=== PATIENT | female | born 1970 | race Caucasian/White ===

== ENCOUNTER 2021-07-21 15:58 | Outpatient (REF) | payer OTHER, SELFPAY ==
[2021-07-23 15:47] LABS: COVID-19 RT-PCR UVMMC Result Negative (Negative)
== END 2021-07-21 15:59 | disposition home or self-care (01) ==
LOC: LBN 15:58
PROVIDERS: PCP Family Medicine; Visit Provider Nurse Practitioner Family
DX: Z20.822 Contact with and (suspected) exposure to COVID-19 (principal); J06.9 Acute upper respiratory infection, unspecified
CPT/HCPCS: U0003

== ENCOUNTER 2021-07-23 13:13 | Emergency (ER) | payer OTHER, SELFPAY ==
[2021-07-23] VITALS (36 sets, daily range): BP systolic 117–177; BP diastolic 63–158; PULSE 71–189; RESP 23–37; TEMP 31–36.4; O2SAT 84–96
--- NOTE | 2021-07-23 13:06 | DI.CT_ITS ---
Exam(s) CT BRAIN NECK CTA EXAM: CT BRAIN NECK CTA CLINICAL HISTORY: stroke. TECHNIQUE: Imaging Protocol: Axial CT angiography was performed with multi-slice acquisition and mu lti-planar and/or 3D reconstructions. CONTRAST MATERIAL: Intravenous: Omnipaque 350 Contrast volume:85 cc COMPARISON: No prior brain imaging studies FINDINGS: CTA Neck W: Lower most images of this CTA study reveal ground-glass infiltrates in both lungs. Recommend Covid te sting Aortic arch anatomy: The aortic arch anatomy is conventional. Anterior circulation: Both common carotid arteries ascend with normal luminal diameters. No significant atherosclerotic dis ease at the carotid bifurcations. Left internal carotid artery is patent in the neck. There right internal carotid artery is occluded at C2 level. No flow is seen in this vessel in the sk ull base nor within the right cavernous sinus. No flow in the supraclinoid aspect of the right ICA. T he ipsilateral A1 segment is reconstituted, most probably by retrograde flow through the anterior com municating artery. There is an 8 millimeter filling defect in the middle cerebral artery M1 segment. Some flow is seen distal to this in the right middle cerebral artery. The left internal carotid artery is patent in the skull base and cavernous sinus and supraclinoid asp ect. Left middle cerebral artery is patent out to the sylvian fissure branches. Both A1 segments are patent. Both anterior cerebral arteries are patent. There is no aneurysm at the level of the anterior communicating artery. Posterior circulation: Both vertebral arteries arise in conventional fashion off of the subclavian arteries. No significant stenosis at their origins nor in the subclavian arteries proximal to the vertebral artery takeoff poi nts. In the foramen transverse area in the left vertebral artery is dominant. There are no intralumin al thrombus within the vertebral arteries nor evidence of dissection. Both vertebral arteries contrib wrangell to the formation of the basilar artery at the skull base. Basilar artery is patent. Distally the basilar artery gives off patent bilateral superior cerebellar arteries. It terminates as a patent rig ht posterior cerebral artery. Also gives off left posterior cerebral artery. The left posterior cereb ral artery also acquires flow from posterior communicating artery on the left side of the [place]. There is no evidence of aneurysm of the tip of the basilar artery. CTA Brain W: Anterior circulation: As above Posterior circulation: As above CT BRAIN: No evidence of intracranial hemorrhage, mass effect, or shift of midline structures. No extra-axial f luid collections. Ventricles are not enlarged or shifted. No ring enhancing lesions in the brain. No abnormal meningeal enhancement. There is poor collateral flow in the territory of the right middle ce rebral artery No evidence of venous dural sinus thrombosis. IMPRESSION: 1. 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 No flow demonstrated in the ipsilateral supraclinoid aspect of the right ICA. Flow in the right midd le cerebral artery is most probably from retrograde flow in the right A1 segment through the anterior communicating artery. 2. In addition, there is an 8 millimeter filling defect in the right middle cerebral artery M1 segmen t consistent with intraluminal thrombus. There is some flow within the right middle cerebral artery d istal to the intraluminal thrombus. 3. The left internal carotid artery is patent. 4. There is no significant atherosclerotic disease at the carotid bifurcations. This implies that t he above finding are probably cardioembolic and correlation any history of atrial fibrillation is rec ommended. 5. Vertebral arteries are patent, left being dominant. Posterior circulation within the intracranial compartment is patent. 6. No evidence of intracranial hemorrhage. Findings called by myself to the emergency room physician. RADIATION DOSE DELIVERED: 1,359.29mGy.cm Total DLP DATA REPOSITORY: All CT scans at this facility are submitted to the National Radiology Data Registry (NRDR) Dose Index Registry (DIR) with the [employer] (ACR). RADIATION OPTIMIZATION: All CT scans at this facility use at least one of these dose optimization te chniques: automated exposure control; mA and/or kV adjustment per patient size (includes targeted exa ms where dose is matched to clinical indication); or iterative reconstruction.
--- NOTE | 2021-07-23 13:20 | W.ED.GENAD ---
Discharge Plan Disposition Patient Disposition: [facility] Condition: Critical Discharge Details Clinical Impression: Acute cerebrovascular accident (CVA), Atrial fibrillation with RVR Primary Care Provider: Ella Hough ED Provider: Miguel Bermudez Home Meds and New Rx's Prescriptions: No Action ibuprofen 600 MG tablet 600 mg PO Q6H Qty: 40 RF: 1 hydrocodone-acetaminophen 1 TAB tablet 1 tab PO Q6H Qty: 9 RF: 0 Medical Decision Making 50 yo female with no significant pmhx comes in with ems with weakness on the left side, n/v and slurred speech. She was at work in normal state of health until aroud 1pm when she started to have vomit, left sided weakness and slurred speech so coworkers called ems. SHe arrives tachycardic in what appears to be svt on the monitor on arrival. She is caox4 with very slurred speech but if a question is 1-2 words answers she can answer to the point I can understand her. She knows her name, where she is and year. She has drift immediately hits the bed in the left arm and leg. Given her symptoms and concern for cva labs and ct ordered, will perform full NIH exam when she returns. Nursing placed NG tube due to her intermittent vomit with success, she is awake and do not feel intubation indicated at this time. She is noted to be in afib with rates in the 150's-180's. cta per Dr. Fuchs shows occluded right carotid artery and 8mm thrombus in the right mca. Her NIH is 14 on my exam (1 for loc, 2 for horizontal extraocular movements, 2 for partial paralysis lower face, 2 for left arm some effort against gravit, 2 for left lleg some effort against gravity, 1 for sensation, 2 for language/aphasia, 2 for dysarthria), HR after receiving IV dilt is 130, and drip ordered. Will discuss with [facility] [place]. Discussed with pt's daughter and mother and they are unsure if they want tpa administered, will discuss with them after they have time to discuss further family now agreeable to tpa so this is ordered. Pt on dilt drip with rates in the 120's, still awakens to voice, on HFNC to maintain oxygenation, it is 95% currently, do not feel she requires intubation at this time. Discussed with neurologist Dr. Gray at [facility] [place] and agrees with tpa and is discussing now with their ED for ED to ED transfer for possible intervention pt accepted to [facility] [place], going by [facility], later [facility]. Patient with rates in the 120's and oxygen saturations in the mid 90's on hfnc. When asked how she is doing she opens her eyes and will use her right hand and give a thumbs up. [facility] Differential Diagnosis Differential Diagnosis: hemorrhagic vs ischemic cva Medical Records Medical records reviewed: Yes I reviewed the patient's medical records. Imaging Data Radiologic Study: Attestation: I personally reviewed and interpreted this imaging study as follows: Imaging: X-Ray My impression: findings suspicious for aspiration pneumonitis Radiologist's impression: Bilateral patchy infiltrates. Probable right pleural effusion. NG tube is in place. Its distal tip is beyond the field of view of this study but it is probably in the stomach Radiologic Study #2: Attestation: I personally reviewed and interpreted this imaging study as follows: Imaging: CT Scan Radiologist's impression: occluded right internal carotid and right mca Lab Data Lab results reviewed: Yes I reviewed the patient's lab results. ECG Data Attestation: I personally reviewed and interpreted this ECG (s) as follows: Prior ECG tracings: not available for review Interpretation: afib rates in the 180's, qtc 467, no acute st t wave ischemic findings HPI General Mode of arrival: EMS. Date/Time Provider Initiated Documentation: 07/23/21 13:17. Information obtained by: patient and EMS. History of Present Illness 50 year old F presents to the emergency department with the chief complaint of left sided weakness, described as moderate and severe, and it has been constant. No relieving factors improve symptom(s), No exacerbating factors reported . Patient did receive the following treatments prior to arrival, none Related Data Home Medications Medication Instructions Recorded Confirmed hydrocodone-acetaminophen 1 tab PO Q6H #9 tab 04/15/18 ibuprofen 600 mg PO Q6H #40 tab 04/15/18 Previous Rx's Medication Instructions Recorded hydrocodone-acetaminophen 1 tab PO Q6H #9 tab 04/15/18 ibuprofen 600 mg PO Q6H #40 tab 04/15/18 Allergies Allergy/AdvReac Type Severity Reaction Status Date / Time No Known Allergies Allergy Unverified 07/23/21 13:14 General Stated Complaint: CVA/TIA SARA: 1 Review of Systems All systems reviewed & are unremarkable except as noted in HPI and below Constitutional Constitutional: Denies chills and Denies fever(s) Cardiovascular Cardiovascular: Denies chest pain and Denies dyspnea Respiratory Respiratory: Denies cough and Denies dyspnea Gastrointestinal Gastrointestinal: Denies abdominal pain Musculoskeletal Musculoskeletal: Denies joint swelling PFSH Medical History (Updated 07/23/21 @ 14:57 by Miguel Bermudez MD) Low back pain Obesity Surgical History (Updated 08/10/18 @ 14:34 by [employer] [place]) Appendectomy Cholecystectomy Social History Smoking/Tobacco Use Status: Never Smoking risk assessment performed?: Yes Alcohol Intake: never Drug use: Never Do you feel safe at home: Yes Do you feel safe in your relationship?: Yes Exam Const General: anxious Orientation: alert HENMT Head: normal to inspection Ears: external ears normal General nose exam: external nose normal Mouth: moist mucous membranes Eyes General: appearance normal, both eyes and all related structures Neck Neck: normal visual inspection Resp Effort & Inspection: normal respiratory effort Cardio Rate: tachycardic Skin General skin exam: no rashes or lesions noted Neuro General: patient alert Extrem General: normal to inspection Course Vital Signs Vital signs: Vital Signs Pulse 170 H 07/23/21 13:00 Respiratory Rate 30 H 07/23/21 13:00 Pulse Oximetry 84 L 07/23/21 13:00 Temperature Source Skin 07/23/21 13:00 Pulse 170 H 07/23/21 13:00 Respiratory Rate 30 H 07/23/21 13:00 Blood Pressure Position Supine 07/23/21 13:00 Pulse Oximetry 84 L 07/23/21 13:00 Oxygen Delivery Method Room Air 07/23/21 13:00 Oxygen Flow Rate 0 07/23/21 13:00 Pain Level 0 07/23/21 13:00 Comment 07/23/21 13:00 Critical Care Time Critical Care Time Critical Care Time: Yes Total Critical Care Time: 60 (minutes) Attestation: time spent on frequent reassesments, lab review, hemodynamic monitoring in patient with cva and afib with rvr requiring dawit blockers and potential to deteriorate at any time
[2021-07-23 13:25] LABS: HCT 44.1 % (36.0-46.0); HGB 13.8 g/dL (11.2-15.7); MCH 29.4 pg (27.0-33.0); MCHC 31.3 % (32.0-36.0); MCV 93.8 fL (80-95); MPV 10.6 fL (8.0-11.0); Nucleated RBC 0 %; Platelet Count 357 10^3/uL (130-400); RDW 14.1 % (11.7-14.6); RDW-SD 48.6 fL; WBC 14.08 10^3/uL (4.4-10.8)
[2021-07-23 13:39] LABS: ALT 49 U/L (14-59); AST 34 U/L (15-37); Absolute Basophil Count 0.28 10^3/uL (0.0-0.2); Absolute Eosinophil Count 0.14 10^3/uL (0.0-0.7); Absolute Lymphocyte Count 5.63 10^3/uL (1.2-3.4); Absolute Monocyte Count 0.42 10^3/uL (0.1-0.8); Albumin 3.5 g/dL (3.4-5.0); Alkaline Phosphatase 85 U/L (46-116); Anion Gap 9.2 mmol/L (3-11); Atypical Lymphocytes % 3; BUN 19 mg/dL (7-18); Bands % 1; Bilirubin, Total 0.9 mg/dL (0.2-1.0); CO2 25.8 mmol/L (21.0-32.0); Calcium 8.6 mg/dL (8.5-10.1); Chloride 105 mmol/L (98-107); Diff Comment Manual Differential; Estimated GFR 58.93 (mL/min/1.73m2); Glucose 171 mg/dL (74-106); Lipase 93 U/L (73-393); RBC Morphology Normal; Sodium 140 mmol/L (136-145); Total Protein 6.8 g/dL (6.4-8.2)
[2021-07-23 13:40] LABS: INR 1.1 (0.9-1.1); PTT Activated 21.7 sec (21.0-27.5); Prothrombin Time 11.2 sec (9.3-11.0)
[2021-07-23 13:45] LABS: ETHANOL BLOOD < 3.0 mg/dL (<3)
--- NOTE | 2021-07-23 13:45 | RT.EKG_ITS ---
APPROVED REPORT Exam: Resting ECG Reason for Exam: cva Patient Location: E HR:166 bpm ECG Measurements Heart Rate 166 AXIS ID [id number] P [id number] QRSd 94 QRS -18 QT 276 T 98 QTc 467 Conclusion Age and gender not entered, assume 51 yo male for purpose of ECG interpretation Atrial fibrillation with rapid V-rate...A-rate 417 Repolarization abnormality, prob rate related...ST dep, T neg, tachycardia
[2021-07-23] MEDS: Normal Saline - Diluent 50 ML VIAL IV (13:46)
[2021-07-23] MEDS: Omnipaque 350 MG/ML 100 ML BTL 85 ML IJ (13:46)
[2021-07-23 14:02] LABS: Magnesium 2.1 mg/dL (1.8-2.4); TSH (W/Ref FT4) 3.61 uIU/mL (0.36-3.74)
[2021-07-23] MEDS: dilTIAZem 25 MG/5 ML VIAL 15 MG IVP (14:11)
--- NOTE | 2021-07-23 14:12 | DI.RAD_ITS ---
Exam(s) XR PORTABLE CHEST AP POST LINE EXAM: XR PORTABLE CHEST AP POST LINE CLINICAL HISTORY: tube placement. TECHNIQUE: 2D digital imaging was performed. COMPARISON: No exams were available for comparison FINDINGS: There is cardiomegaly.. The mediastinum is not widened. NG tube is in stomach Infiltrates noted bilaterally. Probable small right pleural effusion. IMPRESSION: Bilateral patchy infiltrates. Probable right pleural effusion. NG tube is in place. Its distal tip is beyond the field of view of this study but it is probably in the stomach DATA REPOSITORY: RADIATION DOSE DELIVERED: All CT scans at this facility use at least one of these dose optimization techniques: automated exposure control; mA and/or kV adjustment per patient size (includes targeted e xams where dose is matched to clinical indication); or iterative reconstruction.
[2021-07-23 14:15] LABS: Source Nasal/Nares
[2021-07-23 14:22] LABS: Bilirubin Negative (Negative); Blood Moderate (Negative); Glucose Negative (Negative); Ketones Negative (Negative); Leukocyte Esterase Negative (Negative); Nitrite Negative (Negative); Urobilinogen 0.2 EU/dL (Up TO 0.2)
[2021-07-23 14:23] LABS: Clarity Clear (Clear)
[2021-07-23] MEDS: dilTIAZem 125 MG in Normal Saline 100 ML IV (14:23)
[2021-07-23 14:30] LABS: Bacteria Few HPF (Negative); Crystals Negative HPF (Negative); Epithelial Cells Few HPF (Negative); Mucus Trace (Negative); Other Cells Few Renal (Negative); WBC 0-2 HPF (0-5)
[2021-07-23 14:31] LABS: C & S Indicated? No
[2021-07-23 14:32] LABS: *AMPHETAMINES SCREEN URINE Negative (Negative); *BARBITURATES SCREEN URINE Negative (Negative); *BENZODIAZEPINES SCREEN URINE Negative (Negative); Cannabinoids THC Negative (Negative); Cocaine Screen,Urine Negative (Negative); METHADONE URINE SCREEN Negative (Negative); OPIATES URINE SCREEN Negative (Negative)
--- NOTE | 2021-07-23 14:38 | RESPIRATORY ---
1330 RT responded to Stroke Code on pt. Pt was altered w/left-sided weakness. Pt continued to vomit requiring oral suction. Pt was placed on 15L O2 via NC with an SpO2 of 94% and transported to CT. Pt again vomited when laid flat for CT requiring oral suctioning. Pt maintained SpO2 above 88% throughout CT. Upon return to ED, pt required additional O2, so NRB w/15L O2 was placed over NC. 1415 Pt continues to require frequent oral suctioning with coughing. HFNC initiated at 50L 90% FiO2 with SpO2 92-93%, HR 147, RR 26 Will continue to monitor pt.
--- NOTE | 2021-07-23 14:47 | NUR.NOTE ---
TPA started at 1447. Pt remains with HR 124 A-fib, SPO2 96 on 50L, RR 31. BP 132/86. Pt is lethargic with slurred speech. Monitoring pt 1:1 Nursing Note:
[2021-07-23 14:48] LABS: Tricyclic Antidepressants Negative (Negative)
--- NOTE | 2021-07-23 14:52 | NUR.NOTE ---
Pt alert and answering questions verbally and with thumbs up. Now to be noted lethargic and responding to voice with head nods. Pt tolerating High Flow NC well at this time.Nursing Note:
[2021-07-23 15:19] LABS: COVID-19 PCR Negative (Negative)
== END 2021-07-23 15:56 | disposition short-term general hospital (02) ==
PROVIDERS: Emergency Provider Emergency Medicine; PCP Family Medicine
DX: I63.231 Cerebral infarction due to unspecified occlusion or stenosis of right carotid arteries (principal); G81.94 Hemiplegia, unspecified affecting left nondominant side; I66.9 Occlusion and stenosis of unspecified cerebral artery; R29.714 NIHSS score 14; R47.81 Slurred speech; I48.91 Unspecified atrial fibrillation; R11.2 Nausea with vomiting, unspecified; Z20.822 Contact with and (suspected) exposure to COVID-19; Z03.818 Encounter for observation for suspected exposure to other biological agents ruled out
CPT/HCPCS: 36415; 51702; 70496; 70498; 71045; 80053; 80307; 83690; 87635; 93005; 96365; 96366; 96368; 96375; 99291; 80320; 81003; 81015; 83735; 84443; 85025; 85610; 85730; 93010; J2997; J3490

== ENCOUNTER 2021-10-30 19:06 | Outpatient (REF) | payer OTHER, SELFPAY ==
[2021-10-31 15:18] LABS: COVID-19 RT-PCR UVMMC Result Positive (Negative)
== END 2021-10-30 19:07 | disposition home or self-care (01) ==
LOC: NCHCN 19:06
PROVIDERS: PCP Family Medicine; Visit Provider Family Medicine
DX: Z20.822 Contact with and (suspected) exposure to COVID-19 (principal)
CPT/HCPCS: U0003

== ENCOUNTER 2021-12-05 18:36 | Outpatient (REF) | payer OTHER, SELFPAY ==
[2021-12-07 10:30] LABS: COVID-19 RT-PCR UVMMC Result Negative (Negative)
== END 2021-12-05 18:37 | disposition home or self-care (01) ==
LOC: NCHCN 18:36
PROVIDERS: PCP Family Medicine; Visit Provider Family Medicine
DX: Z20.822 Contact with and (suspected) exposure to COVID-19 (principal)
CPT/HCPCS: U0003

== ENCOUNTER 2022-02-25 00:49 | Outpatient (CLI) | payer OTHER, SELFPAY ==
--- NOTE | 2022-02-25 14:00 | DI.US_ITS ---
APPROVED REPORT EXAM: Comprehensive 2D, Doppler, and color-flow Echocardiogram Patient Location: Out-Patient Substitute Nurse: Cara Tierney RDCS (AE) Indications: Atrial Fib, Heart failure, Other Information Study Quality: Fair Conclusion Normal left ventricular wall thickness and chamber size. Estimated ejection fraction is 60%. Wall m otion is normal Normal right ventricular size and systolic function Both atria are normal in size There is no structural or hemodynamically significant valvular disease There is a small patent foramen ovale with xdwa-yx-wrsde shunt Normal estimated right ventricular systolic pressure 27 mmHg Wall motion Left Ventricle The left ventricle is normal size. The left ventricular systolic function is normal. The left ventric ular ejection fraction is within the normal range. There is normal left ventricular wall thickness. T here is normal LV segmental wall motion. There is no ventricular septal defect visualized. LVEF is 59 %. Right Ventricle The right ventricle is normal size. The right ventricular systolic function is normal. The RVSP is 27 .3 mmHg. Atria The left atrium size is normal. The right atrium size is normal. Small PFO is noted. left to right in teratrial shunt. Aortic Valve Aortic valve is probably trileaflet. There is normal aortic valve excursion. No hemodynamically signi ficant valvular aortic stenosis. No aortic regurgitation is present. Mitral Valve The mitral valve is normal in structure. No evidence of mitral valve stenosis. Trace mitral regurgita tion. Tricuspid Valve The tricuspid valve is normal in structure. There is no tricuspid valve stenosis. Trace tricuspid reg urgitation. Pulmonic Valve The pulmonary valve is normal in structure. There is no pulmonic valvular stenosis. Trace pulmonic re gurgitation. Great Vessels The aortic root is normal in size. The ascending aorta is normal in size. Aortic arch is normal in ca liber. IVC is normal in size and collapses >50% with inspiration. Pericardium There is no pericardial effusion. 2D Dimensions IVSD d PLAX 1.04 cm F: 0.6-1.0 LV Vol A2C d MOD 111.1 mL LVPW d PLAX 1.03 cm F: 0.6 - 1.0 LV Vol A4C d MOD 147.7 mL LVID d PLAX 5.49 cm F: 3.8 - 5.2 LA vol/ BSA A2C s A-L 31.7 mL/m2 LVDs 3.65 cm F: 2.2 - 3.5 LA vol/ BSA A4C s A-L 31.1 mL/m2 Ao Root d 2.92 cm F: 2.7 - 3.3 LA Vol/ BSA Biplane s A-L 32.5 mL/m2 RA Area A4C 20.40 cm2 LA Area A4C s MOD 22.37 cm2 RA Vol/ BSA A4C s A-L 27.0 mL/m2 LA Area A2C s MOD 21.87 cm2 Ao Asc Diam d 3.25 cm F: 2.3 - 3.1 LV EF A4C MOD 58.5 % LV EF Teichholz 61.6 % LV EF A2C MOD 59.6 % LVEF (Cruz's) 59.01 % F: 54 - 74 LV EF Biplane MOD 59.0 % LV Volume 94.65 mL F: 46 - 106 SV 76.37 mL LV Volume Index 43.81 mL/m2 F: 29 - 61 SV Index 35.34 mL/m2 LV Vol Biplane MOD 129.4 mL FS 33.45 % M-Mode TAPSE 2.90 cm (M/F) >1.7 LV Diastology MV E' medial 0.083 (>0.07 m/s) E/A Ratio 1.1 LV E/e MED 9.90 (<14) MV E Vmax 0.83 (0.4-1.3 m/s) MV E' lateral 0.084 (>0.1 m/s) MV A Vmax 0.75 (0.4-1.3 m/s) LV E/e LAT 9.75 (<14) MV E/A Ratio 1.04 MV E/E' medial 9.93 MV E/E' lateral 9.78 Aortic Valve LVOT Area 3.68 cm2 AoV Area Vmax 2.61 cm2 LVOT Vmax 1.16 m/s AoV Area/ BSA (Vmax) 1.21 cm2/m2 LVOT Mean Kurt. 0.66 m/s SHERRIE Mean Kurt. 2.32 cm2 LVOT Peak Grad 5.4 mmHg SHERRIE Mean Kurt. Index 1.07 cm2/m2 LVOT Mean Grad 2.2 mmHg LVOT VTI 0.281 m LVOT Diam s 2.15 cm AoV Vmax 1.63 m/s Velocity Ratio 0.71 AoV Mean Kurt. 1.05 m/s AoV Peak Grad 10.7 mmHg LVOT SV 103.63 mL AoV Mean Grad 5.1 mmHg AoV VTI 0.319 m AoV Area VTI 3.25 cm2 AoV Area/ BSA (VTI) 1.50 cm/m2 Mitral Valve MV DT 228 (160-240 msec) MV PHT 66 msec MV Area PHT 3.33 cm2 MV VTI 0.463 m MV Area VTI 2.24 (4.0-6.0 cm2) Pulmonary Valve PV Vmax 1.08 (0.5-1.5 m/s) RVOT Peak Gr. 2.61 mmHg PV Peak Grad 4.7 mmHg RVOT Mean Gr. 1.40 mmHg PV Mean Grad 2.4 mmHg RVOT VTI 0.210 m PV VTI 0.264 m RVOT Vmax 0.81 m/s Tricuspid Valve TR Peak Grad 24.2 mmHg TR Vmax 2.46 m/s RA Pressure 3.00 mmHg RVSP (TR) 27.3 mmHg
== END 2022-02-25 01:09 ==
PROVIDERS: PCP Family Medicine
DX: I48.91 Unspecified atrial fibrillation (principal); I50.1 Left ventricular failure, unspecified
CPT/HCPCS: 93306

== ENCOUNTER 2022-04-08 18:30 | Outpatient (REF) | payer OTHER, SELFPAY ==
[2022-04-08 19:57] LABS: HCT 41.1 % (36.0-46.0); HGB 13.4 g/dL (11.2-15.7); MCH 31.6 pg (27.0-33.0); MCHC 32.6 % (32.0-36.0); MCV 97 fL (80-95); MPV 10.8 fL (8.0-11.0); Platelet Count 251 10^3/uL (130-400); RBC 4.24 10^6/uL (3.93-5.22); RDW 13.8 % (11.7-14.6); RDW-SD 49.5 fL; WBC 11.12 10^3/uL (4.4-10.8)
[2022-04-08 20:08] LABS: ALT 21 U/L (14-59); AST 21 U/L (15-37); Alkaline Phosphatase 101 U/L (46-116); BUN 22 mg/dL (7-18); Bilirubin, Total 0.4 mg/dL (0.2-1.0); CREATININE 0.9 mg/dL (0.55-1.02); Calcium 9.1 mg/dL (8.5-10.1); Chloride 108 mmol/L (98-107); Glucose 119 mg/dL (74-106); Potassium 4.1 mmol/L (3.5-5.1); Sodium 143 mmol/L (136-145); Total Protein 7.5 g/dL (6.4-8.2)
[2022-04-08 20:21] LABS: Bilirubin Negative (Negative); Blood Trace-intact (Negative); Clarity Clear (Clear); Glucose Negative (Negative); Ketones Trace mg/dL (Negative); Leukocyte Esterase Negative (Negative); Nitrite Negative (Negative); Specific Gravity >= 1.030 (1.005-1.025); Urobilinogen 0.2 EU/dL (Up TO 0.2)
[2022-04-08 20:39] LABS: Bacteria Negative HPF (Negative); C & S Indicated? No; Casts Negative LPF (Negative); Crystals Mod Calcium Oxalate HPF (Negative); Epithelial Cells Negative HPF (Negative); Mucus Negative (Negative); RBC 0-2 HPF (0-2); WBC 0-2 HPF (0-5)
== END 2022-04-08 18:31 | disposition home or self-care (01) ==
LOC: NCHCN 18:30
PROVIDERS: PCP Family Medicine; Visit Provider Family Medicine
DX: I89.0 Lymphedema, not elsewhere classified (principal); I63.9 Cerebral infarction, unspecified; I50.9 Heart failure, unspecified; E66.9 Obesity, unspecified; R82.998 Other abnormal findings in urine
CPT/HCPCS: 80053; 85027; 81003; 81015

== ENCOUNTER 2022-06-13 10:16 | Emergency (ER) | payer OTHER, SELFPAY ==
[2022-06-13] VITALS (26 sets, daily range): BP systolic 132–163; BP diastolic 80–84; PULSE 57–76; RESP 13–21; TEMP 36.6; O2SAT 92–100
--- NOTE | 2022-06-13 10:15 | RT.EKG_ITS ---
APPROVED REPORT Exam: Resting ECG Reason for Exam: afib Patient Location: E HR:62 bpm ECG Measurements Heart Rate 62 AXIS AZ 156 P 41 QRSd 97 QRS -19 QT 392 T 9 QTc 397 Conclusion Sinus rhythm...normal P axis, V-rate 60- 99 Atrial premature complex...SV complex w/ short R-R interval Left ventricular hypertrophy...multiple voltage criteria. Sinus. PACs. No STEMI. I have reviewed and interpreted ECG and agree with software generated interpretation.
[2022-06-13 11:03] LABS: Abs Immature Grans 0.02 10^3/uL (0.0-0.06); Absolute Basophil Count 0.05 10^3/uL (0.0-0.2); Absolute Eosinophil Count 0.22 10^3/uL (0.0-0.7); Absolute Monocyte Count 0.84 10^3/uL (0.1-0.8); Absolute Neutrophil Count 4.02 10^3/uL (1.2-6.7); Basophils % 0.7; HGB 14.2 g/dL (11.2-15.7); Immature Grans % 0.3; Lymphocytes % 30.9; MCH 30.9 pg (27.0-33.0); MCV 94 fL (80-95); Monocytes % 11.3; Neutrophils % 53.8; Platelet Count 216 10^3/uL (130-400); RDW 13.1 % (11.7-14.6); RDW-SD 45.1 fL; WBC 7.45 10^3/uL (4.4-10.8)
[2022-06-13 11:28] LABS: ALT 21 U/L (14-59); AST 13 U/L (15-37); Albumin 3.8 g/dL (3.4-5.0); Alkaline Phosphatase 93 U/L (46-116); Anion Gap 5.9 mmol/L (3-11); BUN 18 mg/dL (7-18); Bilirubin, Total 0.5 mg/dL (0.2-1.0); CO2 32.1 mmol/L (21.0-32.0); CREATININE 0.8 mg/dL (0.55-1.02); Calcium 9.2 mg/dL (8.5-10.1); Chloride 108 mmol/L (98-107); Glucose 102 mg/dL (74-106); Magnesium 2.1 mg/dL (1.8-2.4); Potassium 3.5 mmol/L (3.5-5.1); Sodium 146 mmol/L (136-145); TSH (W/Ref FT4) 1.59 uIU/mL (0.36-3.74); Total Protein 7.6 g/dL (6.4-8.2); Troponin I < 50 ng/L (<or=60)
--- NOTE | 2022-06-13 13:45 | RT.EKG_ITS ---
APPROVED REPORT Exam: Resting ECG Reason for Exam: palpitations Patient Location: E HR:56 bpm ECG Measurements Heart Rate 56 AXIS IA 172 P 11 QRSd 109 QRS -14 QT 426 T -1 QTc 402 Conclusion Sinus bradycardia...rate< 60 Atrial premature complex...SV complex w/ short R-R interval Left ventricular hypertrophy...multiple voltage criteria Borderline T abnormalities, diffuse leads...T flat/neg. Sinus. PACs. No STEMI. I have reviewed and interpreted ECG and agree with software generated interpretation.
[2022-06-13 14:07] LABS: Troponin I < 50 ng/L (<or=60)
--- NOTE | 2022-06-13 15:10 | ED.GENADUL_ITS ---
Discharge Plan Disposition Patient Disposition: HOME Condition: Good Discharge Details Clinical Impression: Heart palpitations Primary Care Provider: Ella Hough ED Provider: Josue Burgos Home Meds and New Rx's Prescriptions: Continued atorvastatin 40 mg tablet 1 tab PO HS Label Comments: Take 1 tablet by mouth every night as directed metoprolol succinate [Toprol XL] 50 mg tablet extended release 24 hr 1 tab PO DAILY Label Comments: 1 tablet by mouth once a day sennosides-docusate sodium [Stimulant Laxative Plus] 8.6-50 mg tablet 2 tab PO BID Label Comments: TAKE 2 TABLETS BY MOUTH TWICE DAILY lisinopril 10 mg tablet 1 tab PO DAILY Label Comments: Take 1 tablet by mouth once a day as directed furosemide 20 mg tablet 1 tab PO DAILY Label Comments: TAKE 1 TABLET BY MOUTH EVERY DAY albuterol sulfate 90 mcg/actuation HFA aerosol inhaler 2 puff INHALATION PRN PRN Label Comments: INHALE 2 PUFFS BY MOUTH EVERY 4 HOURS NEEDED dofetilide 500 mcg capsule 1 cap PO BID Label Comments: TAKE 1 CAPSULE BY MOUTH TWICE DAILY lactulose 10 gram/15 mL solution 15 ml PO DAILY Label Comments: TAKE 15 ML BY MOUTH TWICE DAILY omeprazole 20 mg tablet,delayed release (DR/EC) 1 tab PO DAILY Label Comments: TAKE 1 TABLET BY MOUTH EVERY DAY DIRECTED Eliquis 5 mg tablet 1 tab PO BID Label Comments: TAKE 1 TABLET BY MOUTH TWICE DAILY DIRECTED ibuprofen 600 MG tablet 600 mg PO Q6H Qty: 40 1RF hydrocodone-acetaminophen 1 TAB tablet 1 tab PO Q6H Qty: 9 0RF Discharge Instructions Instructions: Heart Palpitations (ED) Additional Instructions: At this time we are finding no worrisome findings with your emergency department work-up. If you develop any new or worsening symptoms, have a return of persistent palpitations or rapid heart rate, or further concerns return immediately to the emergency department for reassessment. Otherwise continue to monitor your heart rate as discussed and follow-up with your primary care provider if this occurs again as you may need further medication changes. Referrals: Ella Hough [Primary Care Provider] - (As needed for reassessment) Discharge Data Discharge Date/Time-TO BE ENTERED AT DEPARTURE: 06/13/22 15:20 Medical Decision Making Patient presenting to the emergency department for chief complaint of palpitations. She states this morning while she was getting up out of bed her watch stated that her heart rate was abnormal. Patient states that she was asymptomatic at that time but due to having a history of A. fib checked her blood pressure which was elevated also. Due to this patient was presenting to the emergency department. She does state while walking across the parking lot she did feel some palpitations which now have fully resolved. Patient is currently asymptomatic with no chest pain or other symptoms. Physical exam is unremarkable. Given patient's history we will perform EKG and cardiac work-up to rule out any cardiac event. Reviewed EKG. Please see physician interpretation for full interpretation of EKG the patient is in sinus rhythm, no findings of atrial fibrillation, no findings to suggest STEMI. Reviewed patient's labs which shows a unremarkable CBC, CMP shows a slightly elevated sodium of 146, chloride of 108, carbon dioxide of 32.1. CMP is otherwise nondiagnostic with all of these levels being only slightly elevated. Initial troponin is negative and the patient's TSH was within normal range. Reassessed patient and she continued to state that she was asymptomatic. We will continue with 3-hour troponin and repeat EKG. Repeat EKG continues to show normal sinus rhythm, negative repeat troponin, and patient remains asymptomatic. I have a high suspicion that the event that occurred this morning may have been a error on patient's watch given that she was asymptomatic. Patient did pull up the heart rate record on her phone patient's heart rate never increased above 100. There is some suspicion that this could be more related to anxiety but will have patient continue to monitor heart rate, informed patient to check her pulse manually if her watch informed her of the irregular rhythm and if patient becomes symptomatic at any point that she should return to the emergency department for reevaluation. Otherwise I feel that patient is able to be safely followed up on outpatient basis. After discussion of diagnosis and plan of care patient has no further needs, questions, or concerns and states clear understanding to return to the emergency department for any worsening symptoms. This documentation was generated using [email or web address] system, please disregard any oddities of phrase or misspellings. HPI General Mode of arrival: ambulatory . Date/Time Provider Initiated Documentation: 06/13/22 10:20 . Limitations to Documentation: no limitations . Information obtained by: patient, RN notes reviewed and old records reviewed . History of Present Illness 51 year old F presents to the emergency department with the chief complaint of Palpitations, described as mild, Quality is described as other (Denies pain), Patient started experiencing this day(s) (2) and it has been intermittent and now resolved. No relieving factors improve symptom(s), No exacerbating factors reported . Patient notes no other symptoms.. Patient did receive the following treatments prior to arrival, none Related Data Home Medications Medication Instructions Recorded Confirmed hydrocodone 5 mg-acetaminophen 325 1 tab PO Q6H #9 tabs 04/15/18 mg tablet ibuprofen 600 mg tablet 600 mg PO Q6H #40 tabs 04/15/18 albuterol sulfate 90 mcg/actuation 2 puff inhalation PRN PRN 06/13/22 06/13/22 aerosol inhaler apixaban 5 mg tablet (Eliquis) 1 tab PO BID 06/13/22 06/13/22 atorvastatin 40 mg tablet 1 tab PO HS 06/13/22 06/13/22 dofetilide 500 mcg capsule 1 cap PO BID 06/13/22 06/13/22 furosemide 20 mg tablet 1 tab PO DAILY 06/13/22 06/13/22 lactulose 10 gram/15 mL oral 15 ml PO DAILY 06/13/22 06/13/22 solution lisinopril 10 mg tablet 1 tab PO DAILY 06/13/22 06/13/22 metoprolol succinate 50 mg 1 tab PO DAILY 06/13/22 06/13/22 tablet,extended release 24 hr (Toprol XL) omeprazole 20 mg tablet,delayed 1 tab PO DAILY 06/13/22 06/13/22 release sennosides 8.6 mg-docusate sodium 2 tab PO BID 06/13/22 06/13/22 50 mg tablet (Stimulant Laxative Plus) Previous Rx's Medication Instructions Recorded hydrocodone 5 mg-acetaminophen 325 1 tab PO Q6H #9 tabs 04/15/18 mg tablet ibuprofen 600 mg tablet 600 mg PO Q6H #40 tabs 04/15/18 Allergies Allergy/AdvReac Type Severity Reaction Status Date / Time No Known Allergies Allergy Unverified 07/23/21 13:14 General Stated Complaint: Palpitatns SARA: 3 Review of Systems Constitutional Constitutional: Denies chills, Denies fever(s), Denies headache(s) and Denies malaise ENT Ears, Nose, Mouth, and Throat: Denies vertigo, Denies dizziness and Denies headache(s) Cardiovascular Cardiovascular: Reports as per HPI, Denies chest pain, Denies chest pain with activity, Denies syncope, Denies irregular heart rhythm, Reports palpitations and Denies dyspnea Respiratory Respiratory: Denies cough, Denies hemoptysis and Denies dyspnea Gastrointestinal Gastrointestinal: Denies abdominal pain, Denies nausea and Denies vomiting Neurologic Neurologic: Denies confusion, Denies vertigo, Denies dizziness, Denies syncope and Denies headache(s) Psychiatric Psychiatric: Denies anxiety and Denies confusion Endocrine Endocrine: Denies cold intolerance, Denies heat intolerance and Reports palpitations PFSH All Active Problems (Updated 06/13/22 @ 15:11 by Josue Burgos NP) Acute cerebrovascular accident (CVA) (Acute) Atrial fibrillation with RVR (Acute) Heart palpitations (Acute) Medical History (Updated 06/13/22 @ 15:11 by Josue Burgos NP) Low back pain Obesity Surgical History (Updated 08/10/18 @ 14:34 by Edu[employer]ise [place]) Appendectomy Cholecystectomy Social History Smoking/Tobacco Use Status: Never Smoking risk assessment performed?: Yes Alcohol Intake: never Drug use: Never Do you feel safe at home: Yes Do you feel safe in your relationship?: Yes Exam Const General: cooperative, healthy appearing, comfortable, no acute distress, not diaphoretic and not ill appearing Nutritional Appearance: average body habitus Orientation: alert, awake and oriented x3 Limitations: mental status not altered Neck Neck: normal visual inspection, full ROM, trachea midline, supple and no anterior neck swelling Thyroid: thyroid normal Carotids: normal carotid upstroke and no bruits Chest Chest: normal inspection of the chest Resp Effort & Inspection: normal respiratory effort and able to speak in complete sentences Auscultation: clear to auscultation bilaterally Cardio Jugular venous pressure: no JVD Palpation: normal PMI Rate: regular rate Rhythm: regular rhythm Heart Sounds: S1 normal, S2 normal, no click, no gallops, no murmurs and no rubs Bruits: no abdominal aortic bruits and no carotid bruits Pulses: radial pulses present bilaterally 2+ GI Inspection: normal to inspection Palpation: soft, no aortic enlargement, no pulsatile masses and nontender Auscultation: normal bowel sounds Skin General skin exam: no rashes or lesions noted Neuro General: patient alert, patient awake, patient oriented x3, tone normal and moves all extremities Course Vital Signs Vital signs: Vital Signs Temperature 36.6 C 06/13/22 10:21 Pulse 73 06/13/22 10:21 Respiratory Rate 18 06/13/22 10:21 Blood Pressure 163/84 H 06/13/22 10:21 Pulse Oximetry 99 06/13/22 10:21 Temperature 36.6 C 06/13/22 10:21 Temperature Source Temporal Artery Scan 06/13/22 10:21 Pulse 73 06/13/22 10:21 Pulse 66 06/13/22 11:50 Respiratory Rate 16 06/13/22 11:50 Respiratory Effort Non-Labored 06/13/22 10:29 Blood Pressure 163/84 H 06/13/22 10:21 Blood Pressure Position Sitting 06/13/22 10:21 Pulse Oximetry 96 06/13/22 11:40 Oxygen Delivery Method Room Air 06/13/22 10:21 Oxygen Flow Rate 0 06/13/22 10:21 Pain Level 0 06/13/22 10:21 Lab/Test Results Lab/Test Results: Laboratory Tests Range/Units 06/13/22 06/13/22 06/13/22 10:55 10:55 13:32 WBC (4.4-10.8) 10^3/uL 7.45 RBC (3.93-5.22) 10^6/uL 4.60 Hgb (11.2-15.7) g/dL 14.2 Hct (36.0-46.0) % 43.0 MCV (80-95) fL 94 MCH (27.0-33.0) pg 30.9 MCHC (32.0-36.0) % 33.0 RDW (11.7-14.6) % 13.1 Plt Count (130-400) 10^3/uL 216 MPV (8.0-11.0) fL 10.0 Immature Gran % 0.3 Neutrophils % 53.8 Lymphocytes % 30.9 Monocytes % 11.3 Eosinophils % 3.0 Basophils % 0.7 Nucleated RBC % (0.0-0.3) % 0.0 Absolute Neutrophils (1.2-6.7) 10^3/uL 4.02 Absolute Lymphocytes (1.2-3.4) 10^3/uL 2.30 Absolute Monocytes (0.1-0.8) 10^3/uL 0.84 H Absolute Eosinophils (0.0-0.7) 10^3/uL 0.22 Absolute Basophils (0.0-0.2) 10^3/uL 0.05 Sodium (136-145) mmol/L 146 H Potassium (3.5-5.1) mmol/L 3.5 Chloride (98-107) mmol/L 108 H Carbon Dioxide (21.0-32.0) mmol/L 32.1 H Anion Gap (3-11) mmol/L 5.9 BUN (7-18) mg/dL 18 Creatinine (0.55-1.02) mg/dL 0.8 Estimated GFR/1.73 m2 (mL/min/1.73m2) >= 60.00 Glucose (74-106) mg/dL 102 Calcium (8.5-10.1) mg/dL 9.2 Magnesium (1.8-2.4) mg/dL 2.1 Total Bilirubin (0.2-1.0) mg/dL 0.5 AST (15-37) U/L 13 L ALT (14-59) U/L 21 Alkaline Phosphatase (46-116) U/L 93 Troponin I (<or=60) ng/L < 50 < 50 Total Protein (6.4-8.2) g/dL 7.6 Albumin (3.4-5.0) g/dL 3.8 TSH (0.36-3.74) uIU/mL 1.59
== END 2022-06-13 15:20 | disposition home or self-care (01) ==
PROVIDERS: Emergency Provider Nurse Practitioner Family; PCP Family Medicine
DX: R00.2 Palpitations (principal); I48.91 Unspecified atrial fibrillation; Z79.01 Long term (current) use of anticoagulants
CPT/HCPCS: 80053; 93005; 99283; 83735; 84443; 84484; 85025; 93010; 99282

== ENCOUNTER 2022-10-02 15:27 | Outpatient (REF) | payer OTHER, MEDICAID, SELFPAY ==
[2022-10-02 14:59] LABS: Vitamin B12 > 2000 pg/mL (193-986)
== END 2022-10-02 15:28 | disposition home or self-care (01) ==
LOC: NCHCN 15:27
PROVIDERS: PCP Family Medicine; Visit Provider Nurse Practitioner Family
DX: F41.8 Other specified anxiety disorders (principal); I89.0 Lymphedema, not elsewhere classified; F01.50 Vascular dementia, unspecified severity, without behavioral disturbance, psychotic disturbance, mood disturbance, and anxiety; M79.602 Pain in left arm
CPT/HCPCS: 82607

== ENCOUNTER 2022-10-12 14:44 | Outpatient (REF) | payer MEDICAID, SELFPAY ==
[2022-10-12 15:07] LABS: HCT 42.3 % (36.0-46.0); HGB 13.8 g/dL (11.2-15.7); MCH 30.7 pg (27.0-33.0); MCHC 32.6 % (32.0-36.0); MCV 94 fL (80-95); MPV 10.6 fL (8.0-11.0); Platelet Count 278 10^3/uL (130-400); RDW 13.5 % (11.7-14.6); RDW-SD 47.2 fL; WBC 7.58 10^3/uL (4.4-10.8)
[2022-10-12 15:22] LABS: ALT 18 U/L (14-59); AST 16 U/L (15-37); Albumin 3.9 g/dL (3.4-5.0); Alkaline Phosphatase 99 U/L (46-116); Anion Gap 3.2 mmol/L (3-11); BUN 20 mg/dL (7-18); Bilirubin, Total 0.5 mg/dL (0.2-1.0); CO2 31.8 mmol/L (21.0-32.0); CREATININE 0.8 mg/dL (0.55-1.02); Calcium 9.1 mg/dL (8.5-10.1); Chloride 106 mmol/L (98-107); Estimated GFR 89.71 (mL/min/1.73m2); Glucose 92 mg/dL (74-106); Magnesium 2.3 mg/dL (1.8-2.4); Sodium 141 mmol/L (136-145); Total Protein 7.8 g/dL (6.4-8.2)
== END 2022-10-12 14:45 | disposition home or self-care (01) ==
LOC: NCHCN 14:44
PROVIDERS: PCP Family Medicine; Visit Provider Family Medicine
DX: I48.91 Unspecified atrial fibrillation (principal); I63.9 Cerebral infarction, unspecified; G81.92 Hemiplegia, unspecified affecting left dominant side
CPT/HCPCS: 80053; 85027; 83735

== ENCOUNTER 2022-11-10 02:11 | Outpatient (CLI) | payer MEDICAID, SELFPAY ==
--- NOTE | 2022-11-10 07:05 | DI.MRI_ITS ---
Exam(s) MR BRAIN WO EXAM: MR BRAIN WO CLINICAL HISTORY: WORSENING left sided numbness, hx stroke,R20.0 TECHNIQUE: Multiplanar multisequence MRI of the brain was performed. COMPARISON: CT CT BRAIN NECK CTA from 07/23/2021 FINDINGS: CEREBRAL PARENCHYMA: There is significant signal abnormality in the right basal ganglia which is subsequent to the CVA of 07/23/2021 and there is ipsilateral ex vacuo dilatation of the right lateral ventricle which was not previously present. Also evidence prior CVA in the right external capsule and more peripherally in t he right middle cerebral artery territory. The signal abnormality in this region is hypointense on T 1, hyperintense on T2 with mild T2 hypo intense surrounding rim in the right basal ganglia as well as corresponding hype 0 intensity on SWI, findings consistent with element of prior hemorrhage also at this level. There is also a small area of signal abnormality more posteriorly in the ipsilateral right temporal l obe consistent with prior infarct. There is no restricted diffusion evident at this level to suggest more acute event. There is also a small by 2 millimeter lacune in the left cerebellar hemisphere consistent with nonacu te tiny infarct at this level. There is no significant focal signal abnormality evident on diffusion imaging to suggest acute ischem ic event. PITUITARY GLAND: No mass nor parasellar abnormality. No obvious abnormality in the cavernous sinuses. FLOW VOIDS: The expected flow void are noted. No evidence of obvious aneurysm nor obvious vascular ma lformation. PARANASAL SINUSES: There is a small post inflammatory retention cyst in the anterior floor the right maxillary sinus, without an associated fluid level. The remainder of the paranasal sinuses are clear as are the mastoid air cells. ORBITS: No obvious findings. IMPRESSION: Sequelae of prior infarct in the territory of the right middle cerebral artery and lenticulostriate b ranches, as described above. There is ex vacuo dilatation of the right lateral ventricle now evident . Smaller foci of previous infarct in the posterior right temporal lobe and left cerebellar hemisphere also noted. DATA REPOSITORY:
== END 2023-04-16 15:48 ==
LOC: DI 02:12
PROVIDERS: PCP Family Medicine; Visit Provider Nurse Practitioner Adult Health
DX: I51.7 Cardiomegaly (principal); I63.511 Cerebral infarction due to unspecified occlusion or stenosis of right middle cerebral artery; R20.0 Anesthesia of skin
CPT/HCPCS: 70551

== ENCOUNTER 2022-12-21 10:34 | Outpatient (REF) | payer MEDICAID, SELFPAY ==
[2022-12-21 14:45] LABS: HCT 42.3 % (36.0-46.0); HGB 13.8 g/dL (11.2-15.7); MCH 30.5 pg (27.0-33.0); MCHC 32.6 % (32.0-36.0); MCV 94 fL (80-95); Platelet Count 249 10^3/uL (130-400); RBC 4.52 10^6/uL (3.93-5.22); RDW 13.9 % (11.7-14.6); RDW-SD 47.4 fL
[2022-12-21 15:04] LABS: ALT 24 U/L (14-59); AST 11 U/L (15-37); Alkaline Phosphatase 101 U/L (46-116); Anion Gap 5.8 mmol/L (3-11); BUN 23 mg/dL (7-18); Bilirubin, Total 0.5 mg/dL (0.2-1.0); CO2 29.2 mmol/L (21.0-32.0); CREATININE 0.8 mg/dL (0.55-1.02); Calcium 9.3 mg/dL (8.5-10.1); Chloride 108 mmol/L (98-107); Estimated GFR 89.15 (mL/min/1.73m2); Glucose 94 mg/dL (74-106); Potassium 4.4 mmol/L (3.5-5.1); Sodium 143 mmol/L (136-145); Total Protein 7.3 g/dL (6.4-8.2)
== END 2022-12-21 10:35 | disposition home or self-care (01) ==
LOC: NCHCN 10:34
PROVIDERS: PCP Family Medicine; Visit Provider Family Medicine
DX: I48.91 Unspecified atrial fibrillation (principal); I63.89 Other cerebral infarction; I69.311 Memory deficit following cerebral infarction
CPT/HCPCS: 80053; 85027; 83735

== ENCOUNTER 2023-01-19 14:27 | Outpatient (CLI) | payer MEDICAID, SELFPAY ==
--- NOTE | 2023-01-19 13:45 | DI.RAD_ITS ---
Exam(s) XR SHOULDER LT COMPLETE 2+V EXAM: XR SHOULDER LT COMPLETE 2+V CLINICAL HISTORY: left shoulder pain. TECHNIQUE: 2D digital imaging was performed of the left shoulder. Two images were obtained. AP and axillary views were obtained. COMPARISON: No exams were available for comparison FINDINGS: BONES: No acute fracture is present. No bony destructive lesion is seen. JOINTS: No dislocation present. SOFT TISSUE: Normal. IMPRESSION: Unremarkable radiographs of the left shoulder. DATA REPOSITORY: RADIATION DOSE DELIVERED:
== END 2023-01-19 14:28 | disposition home or self-care (01) ==
LOC: DIORS 14:27
PROVIDERS: PCP Family Medicine; Referring Provider Family Medicine; Visit Provider Student in an Organized Health Care Education/Training Program
DX: M25.512 Pain in left shoulder (principal)
CPT/HCPCS: 73030

== ENCOUNTER 2023-02-04 00:49 | Outpatient (CLI) | payer MEDICAID, SELFPAY ==
--- NOTE | 2023-02-04 13:00 | DI.MRI_ITS ---
Exam(s) MR UPPER JOINT LT WO EXAM: MR UPPER JOINT LT WO CLINICAL HISTORY: L SHOULDER PAIN, LT ROTATOR CUFF TEAR, M75.102. TECHNIQUE: Multiplanar multisequence MRI was performed. COMPARISON: Plain films 19 January 2023 FINDINGS: BONES: There is no fracture or contusion pattern. There are few tiny degenerative cysts in the clayton l head. JOINTS:The acromioclavicular joint shows mild degenerative changes with mild inferior spurring. No e vidence of impingement. The glenohumeral joint is unremarkable. TENDONS: Supraspinatus: Thickening and edema in the supraspinatus tendon without visible focal tear. Infraspinatus: Unremarkable. Subscapularis: Unremarkable. Teres Minor: Unremarkable. Biceps and [place]: Small amount of fluid in biceps tendon sheath. No focal tear or thickening. MUSCLES: Unremarkable. GLENOID LABRUM: Unremarkable on this noncontrast examination. SOFT TISSUES: Unremarkable. OTHER: Subacromial and subdeltoid bursae show a minimal amount of fluid. Small amount of fluid in th e subcoracoid bursa. . IMPRESSION: Supraspinatus tendinosis. DATA REPOSITORY:
== END 2023-02-04 01:09 ==
LOC: DI 00:50
PROVIDERS: PCP Family Medicine; Visit Provider Student in an Organized Health Care Education/Training Program
DX: M25.512 Pain in left shoulder (principal); M75.82 Other shoulder lesions, left shoulder; M25.412 Effusion, left shoulder; M67.814 Other specified disorders of tendon, left shoulder
CPT/HCPCS: 73221

== ENCOUNTER 2023-04-05 02:28 | Outpatient (CLI) | payer MEDICAID, SELFPAY ==
--- NOTE | 2023-04-05 08:15 | DI.MRI_ITS ---
Exam(s) MR CERVICAL SPINE WO EXAM: MR CERVICAL SPINE WO CLINICAL HISTORY: neck and left arm pain, ? cervical radicULOPATHY,M79.601,M54.2 TECHNIQUE: Multiplanar multisequence MRI of the cervical spine was performed without intravenous con trast. COMPARISON: No exams were available for comparison FINDINGS: CERVICOMEDULLARY JUNCTION: Intact with no evidence of cerebellar tonsillar ectopia. No obvious abnor mality of the odontoid process. No evidence of Chiari 1 malformation. CERVICAL SPINAL CORD: There is no abnormal signal in the cervical spinal cord and no evidence of foca l cord atrophy nor focal cord swelling. OSSEOUS:There are no cervical fractures evident. No significant osseous lesions in the cervical vert ebrae. INDIVIDUAL LEVELS: C2-3: No disc herniation nor central canal stenosis. No foraminal stenosis. No facet arthropathy. C3-4: No disc herniation nor central canal stenosis.Mild facet degenerative changes. No foraminal st enosis. C4-5: No disc herniation nor central canal stenosis.Mild facet arthropathy. No obvious foraminal saad nosis. C5-6: Mild disc space narrowing. There is small left-sided disc-Luschka joint osteophyte complex. S mall posterolateral right disc protrusion evident on the axial T2 image but not substantiated on the other images. C6-7: Normal disc height and signal. There is a posterior subligamentous disc bulge. This extends p osteriorly 3 millimeters and is approximately 1 cm wide. Indents the thecal sac but not the spinal c ord and there is no central canal stenosis.. Does not extend into the exiting neural foramina. Ther e is no foraminal stenosis at this level. No significant facet arthropathy at this level. C7-T1: No disc herniation nor central canal stenosis. No facet arthropathy.No foraminal stenosis. IMPRESSION: 1. At C6-7 level there is a posterior relatively central subligamentous disc bulge extending posterio rly 3 millimeters and approximately 10 mm wide. This indents the thecal sac but not the spinal cord. There is no prominent central canal stenosis and there is no foraminal stenosis this level. 2. Other level findings as above DATA REPOSITORY:
== END 2023-04-05 02:48 ==
LOC: DI 02:28
PROVIDERS: PCP Family Medicine; Visit Provider Nurse Practitioner Adult Health
DX: M50.123 Cervical disc disorder at C6-C7 level with radiculopathy (principal); M25.78 Osteophyte, vertebrae
CPT/HCPCS: 72141

== ENCOUNTER 2023-08-02 13:04 | Outpatient (REF) | payer MEDICAID, SELFPAY ==
[2023-08-02 14:51] LABS: HCT 40.7 % (36.0-46.0); HGB 13.2 g/dL (11.2-15.7); MCH 30.1 pg (27.0-33.0); MCHC 32.4 % (32.0-36.0); MCV 93 fL (80-95); MPV 10.8 fL (8.0-11.0); Platelet Count 247 10^3/uL (130-400); RBC 4.38 10^6/uL (3.93-5.22); RDW 13.6 % (11.7-14.6); RDW-SD 46.5 fL; WBC 6.88 10^3/uL (4.4-10.8)
[2023-08-02 15:44] LABS: ALT 18 U/L (14-59); AST 12 U/L (15-37); Albumin 3.7 g/dL (3.4-5.0); Alkaline Phosphatase 95 U/L (46-116); Anion Gap 9.9 mmol/L (3-11); BUN 20 mg/dL (7-18); Bilirubin, Total 0.5 mg/dL (0.2-1.0); CO2 27.1 mmol/L (21.0-32.0); CREATININE 0.9 mg/dL (0.55-1.02); Calcium 9.5 mg/dL (8.5-10.1); Calculated LDL 83 mg/dL (<100); Chloride 106 mmol/L (98-107); Cholesterol 161 mg/dL (<200); Glucose 97 mg/dL (74-106); HDL Cholesterol 48 mg/dL (40-60); Potassium 3.9 mmol/L (3.5-5.1); Sodium 143 mmol/L (136-145); Total Protein 7.1 g/dL (6.4-8.2); Triglyceride 153 mg/dL (<150)
[2023-08-02 16:57] LABS: Vitamin D 25 Total 16.2 ng/mL (30-100)
== END 2023-08-02 13:05 | disposition home or self-care (01) ==
LOC: NCHCN 13:04
PROVIDERS: PCP Family Medicine; Visit Provider Family Medicine
DX: E66.9 Obesity, unspecified (principal); F41.8 Other specified anxiety disorders; I50.9 Heart failure, unspecified; I89.0 Lymphedema, not elsewhere classified; Z00.00 Encounter for general adult medical examination without abnormal findings
CPT/HCPCS: 80053; 80061; 82306; 85027

== ENCOUNTER 2023-08-09 11:22 | Outpatient (REF) | payer MEDICAID, SELFPAY ==
[2023-08-10 10:34] LABS: HIV-1/2 Ag & Ab Screen Negative (Negative)
[2023-08-10 11:48] LABS: HSV Type 1 Ab, IgG Positive (Negative); HSV Type 2 Ab, IgG Negative (Negative)
[2023-08-10 13:23] LABS: Syphilis Serology (RPR) Negative (Negative)
== END 2023-08-09 11:23 | disposition home or self-care (01) ==
LOC: NCHCN 11:22
PROVIDERS: PCP Family Medicine; Visit Provider Family Medicine
DX: Z11.3 Encounter for screening for infections with a predominantly sexual mode of transmission (principal); Z11.4 Encounter for screening for human immunodeficiency virus [HIV]
CPT/HCPCS: 87389; 86592; 86695; 86696

== ENCOUNTER → 2023-08-16 01:42 | Outpatient (CLI) | payer MEDICAID, SELFPAY ==
--- NOTE | 2023-08-16 07:45 | DI.RAD_ITS ---
Exam(s) XR FOOT RT COMPLETE EXAM: XR FOOT RT COMPLETE CLINICAL HISTORY: Rt foot pain,m79.671. TECHNIQUE: 2D digital imaging was performed. Three views. COMPARISON: No exams were available for comparison FINDINGS: BONES: No acute fracture is present. No bony destructive lesion is seen. Prominent plantar calcaneal spur. JOINTS: No dislocation present. Abnormal flexion and lateral deviation at the distal interphalangeal joint of the 2nd toe. The findings appear chronic. SOFT TISSUE: Normal. IMPRESSION: Prominent heel spur. Chronic appearing deformity at the distal interphalangeal joint of the 2nd toe. DATA REPOSITORY: RADIATION DOSE DELIVERED:
== END ==
PROVIDERS: PCP Family Medicine; Visit Provider Podiatrist
DX: M77.31 Calcaneal spur, right foot (principal); M20.61 Acquired deformities of toe(s), unspecified, right foot
CPT/HCPCS: 73630

== ENCOUNTER 2023-09-08 16:32 | Outpatient (CLI) | payer MEDICAID, SELFPAY ==
[2023-09-08 16:40] VITALS: BP 145/62; PULSE 57; RESP 20; TEMP 36.2; O2SAT 98
--- NOTE | 2023-09-08 17:15 | PDOC.PAIN ---
Date of service: 09/08/23 Time of Service: 17:16 Pain Managment Procedure Note Procedure Note Procedure Note: ULTRASOUND GUIDED left biceps tendon area INJECTIONS Pre-Procedural Evaluation: Marissa Sommers has been referred to the [facility] for an Ultrasound Guided left proximal biceps tendon area injection for a chief complaint of left anterior shoulder pain. Pre-procedure Pain Score: 7/10 Dx: Left biceps tendinitis Patient was interviewed and the medical record reviewed. There were no medical, pharmacologic, radiographic, or other structural contraindications to preforming an ultrasound guided injection. Risks and expected side effects as well as potential benefits of the procedure were reviewed. The patient consent form was signed and witnessed. Standard time-out procedure was performed. The use of direct ultrasound visualization of the needle (rather than a non-guided injection) was required to increase patient safety by excluding inadvertent intramuscular, intratendinous, or intraneural needle placement and minimizing bleeding by avoiding osteochondral or vascular injury from the needle. Additionally, the increased accuracy of placement may increase clinical effectiveness and will allow higher diagnostic specificity when evaluating effectiveness of this injection. Procedure Description: The patient was placed in the supine position and automated blood pressure cuff and pulse oximeter applied for monitoring during the procedure and recorded in the medical record. Pre-injection ultrasound scanning of the area of interest was performed using linear transducer, identifying relevant anatomy, landmarks, and neurovascular structures allowing for optimal needle path. The site was then prepared in the usual sterile fashion, using thorough Chlorhexadine preparation of the skin and sterile draping. The same ultrasound transducer was then passed into the sterile field using sterile probe cover and sterile ultrasound gel. The injection target was again visualized. Skin and subcutaneous tissues were anesthetized with 2 mL of 1% Lidocaine. A 25G 1.5 inch skin needle was placed under live ultrasound guidance, using an in-plane approach, to the target area. After visualization of the needle tip at the target area, 2 cc of 1% Lidocaine was injected and this was followed by 1 cc of Depomedrol (40 mg/cc) after negative aspiration for blood. The needle was then removed. Ultrasound images were captured and stored for documentation purposes. Post-procedure Pain Score:5/10 Vital signs were stable throughout the procedure and were as recorded in the docflowsheet by the nursing staff. Follow up plans and appointments were discussed with the patient.Post procedure instruction was given as documented in nursing documentation and having met discharge criteria, they were discharged from the Pain Management Center. COMMENTS: She tolerated the procedure well. She has been instructed on post-procedure exercises. Jarret Hutchins DO, MPH [facility]-Pain Management [facility] for [facility] Management
[2023-09-08 17:18] VITALS: PULSE 58; O2SAT 100
[2023-09-08] MEDS: methylPREDNISolone ACETATE 40 MG/ML VIAL IJ (17:20)
== END 2023-09-08 16:33 | disposition home or self-care (01) ==
LOC: PC 16:33
PROVIDERS: PCP Family Medicine; Visit Provider Preventive Medicine Occupational Medicine
DX: M75.22 Bicipital tendinitis, left shoulder (principal)
CPT/HCPCS: 00123; 20611; J1030

== ENCOUNTER → 2023-09-27 02:49 | Outpatient (CLI) | payer MEDICAID, SELFPAY ==
--- OUTSIDE RECORDS SUMMARY | 2023-09-27 02:50 | XMS_ITS | Continuity of Care Document ---
Author Name Unknown Organization [facility] Address [address] [place] [address] Care Team Providers Care Vaccine Key Customer Leader Name Role Phone Ella Hough Primary Care Physician Encounter [facility] [place] [id number] Date(s): 08/23/23 - 08/23/23 [facility] [address] [place] [address] Discharge Disposition: Home Allergies, Adverse Reactions, Alerts No Known Allergies Assessment and Plan Future Appointments Medications albuterol 90 mcg/inh aerosol inhaler 2 puffs inhalation PRN, 0 Refill(s) Start Date: 08/12/23 Status: Ordered apixaban 5 mg oral tablet 5 mg = 1 tab, Oral, BID, # 60 tab, 0 Refill(s) Start Date: 08/12/23 Status: Ordered aspirin 81 mg oral tablet, chewable 81 mg = 1 tab, Chewed, Daily, 0 Refill(s) Start Date: 08/12/23 Stop Date: 09/10/23 Status: Ordered atorvastatin 40 mg oral tablet PO HS, 0 Refill(s) Start Date: 08/12/23 Status: Ordered busPIRone 10 mg oral tablet 10 mg PO DAILY, 0 Refill(s) Start Date: 08/12/23 Status: Ordered busPIRone 5 mg oral tablet PRN, 0 Refill(s) Start Date: 08/23/23 Status: Ordered D3 50 mcg (2000 intl units) oral capsule 0 Refill(s) Start Date: 08/23/23 Status: Ordered dofetilide 500 mcg oral capsule PO BID, 0 Refill(s) Start Date: 08/12/23 Status: Ordered Eliquis 5 mg oral tablet 5 mg = 1 tab, Oral, BID, TWICE A DAY, # 60 tab, 0 Refill(s) Start Date: 08/23/23 Status: Ordered furosemide 20 mg oral tablet 20 MG PO DAILY, 0 Refill(s) Start Date: 08/12/23 Status: Ordered lisinopril 10 mg oral tablet 10 mg = 1 tab, Oral, Daily, # 30 tab, 0 Refill(s) Start Date: 08/12/23 Status: Ordered magnesium gluconate 500 mg oral tablet 500 mg = 1 tab, Oral, Daily, if not avail, may subsitute with magnesium gluconate 250mg tab 2 tabs daily, 180 tabs x 3 refills, # 90 tab, 3 Refill(s), Pharmacy: [id number] Start Date: 08/23/23 Stop Date: 08/17/24 Status: Ordered melatonin 10 mg oral capsule PO HS PRN, 0 Refill(s) Start Date: 08/12/23 Status: Ordered metoprolol succinate 25 mg oral capsule, extended release 25 mg = 1 cap, Oral, Daily, # 30 cap, 0 Refill(s) Start Date: 08/12/23 Status: Ordered omeprazole 20 mg oral delayed release capsule 20 mg = 1 cap, Oral, Daily, # 30 cap, 0 Refill(s) Start Date: 08/12/23 Status: Ordered Senexon-S 50 mg-8.6 mg oral tablet TWICE A DAY, 0 Refill(s) Start Date: 08/23/23 Status: Ordered senna (sennosides) 12 mg oral tablet 8.6mg 2 tabs PO BID, 0 Refill(s) Start Date: 08/12/23 Status: Ordered Problem List Condition Confirmation Course Effective Dates Status H ealth Status Informant Allergic rhinitis Confirmed Active Memory loss Confirmed Active Afib Confirmed Active Atrial fibrillation with RVR Confirmed Active Tendinopathy of left biceps tendon Confirmed Active Bursitis of left shoulder Confirmed Active Acute cerebrovascular accident Confirmed Active CVA (cerebrovascular accident) Confirmed Active Chronic insomnia Confirmed Active Constipation Confirmed Active Leg cramping Confirmed Active Excessive daytime sleepiness Confirmed Active Dysphagia Confirmed Active Left foot pain Confirmed Active Heart failure Confirmed Active History of CVA (cerebrovascular accident) Confirmed Active Left-sided weakness Confirmed Active Low back pain Confirmed Active Lymphedema Confirmed Active Recurrent maxillary sinusitis Confirmed Active Menorrhagia Confirmed Active Anxiety with depression Confirmed Active Neck pain Confirmed Active Left sided numbness Confirmed Active Obesity Confirmed Active Left arm pain Confirmed Active Pelvic pain Confirmed Active Right arm pain Confirmed Active Right knee pain Confirmed Active Left rotator cuff tear Confirmed Active Vascular dementia Confirmed Active Social History Social History Type Response Tobacco Never tobacco user T obacco Use:. Sex Patient Care team information Care Team Personnel Name: Ella Hough MD Position: No Access Member Role: Primary Care Physician
--- NOTE | 2023-09-27 07:00 | DI.RAD_ITS ---
Exam(s) XR FOOT RT COMPLETE EXAM: XR FOOT RT COMPLETE CLINICAL HISTORY: Pain in right foot,STRESS FX,M84.374A. TECHNIQUE: 2D digital imaging was performed. COMPARISON: CR XR FOOT RT COMPLETE from 08/16/2023 FINDINGS: 3 views No evidence of fracture nor diastasis of the Lisfranc joint. Great toe metatarsophalangeal joint tiffany ears unremarkable. Flexion deformity at the DIP joint of the 2nd toe is again noted. Large inferior calcaneal spur again noted. IMPRESSION: As above but no acute osseous findings nor significant change compared to 08/16/2023. DATA REPOSITORY: RADIATION DOSE DELIVERED:
== END ==
PROVIDERS: PCP Family Medicine; Visit Provider Podiatrist
DX: M79.671 Pain in right foot (principal)
CPT/HCPCS: 73630

== ENCOUNTER → 2024-02-01 09:50 | Outpatient (BNVA) | payer MEDICARE, MEDICAID, SELFPAY | PROVIDERS: PCP Family Medicine; Referring Provider Family Medicine; Visit Provider Nurse Practitioner Adult Health | DX: F01.A0 Vascular dementia, mild, without behavioral disturbance, psychotic disturbance, mood disturbance, and anxiety (principal); I69.311 Memory deficit following cerebral infarction; I69.354 Hemiplegia and hemiparesis following cerebral infarction affecting left non-dominant side | CPT/HCPCS: 99214 ==

== ENCOUNTER → 2024-03-23 08:48 | Outpatient (BNVA) | payer MEDICARE, MEDICAID, SELFPAY | PROVIDERS: PCP Family Medicine; Visit Provider Podiatrist | DX: G57.61 Lesion of plantar nerve, right lower limb; M79.671 Pain in right foot; L84 Corns and callosities; L60.3 Nail dystrophy | CPT/HCPCS: 99214 ==

== ENCOUNTER → 2024-04-06 00:28 | Outpatient (CLI) | payer MEDICARE, MEDICAID, SELFPAY ==
--- NOTE | 2024-04-06 09:30 | DI.MRI_ITS ---
Exam(s) MR LOWER EXTREMITY RT WO EXAM: MR LOWER EXTREMITY RT WO CLINICAL HISTORY: 2nd/3rd interspace neuroma vs plantar plate tear G57.60 M84.374A STRESS FX. TECHNIQUE: Multiplanar multisequence MRI was performed. COMPARISON: CR XR FOOT RT COMPLETE from 09/27/2023 FINDINGS: BONES/JOINTS: There is normal marrow signal. No evidence of a fracture/stress fracture. No evidence of bone lesion. No joint space narrowing identified. No joint effusion identified. There is unchang ed mild lateral angulation and subluxation at the DIP joint of the 2nd toe. LIGAMENTS: The medial and lateral collateral ligaments are intact. MUSCULOTENDINOUS STRUCTURES: Visualized portion of the planar fascia is unremarkable. The visualized intrinsic muscles and tendons of the foot are unremarkable. SOFT TISSUES: There is no evidence of a soft tissue mass. Specifically no evidence of a mass is seen in the 2/3 interspace region to suggest a neuroma. There is mild edema seen in the plantar soft tis sues superficial to the tendons and ligaments at the metatarsophalangeal joint. The tendons and liga ments are intact. There is mild hyperintense fluid seen in the soft tissues between the heads of the 1st through 4th metatarsal bones. This may represent an intermetatarsal bursitis. OTHER FINDINGS: None. IMPRESSION: 1. No evidence of a stress fracture. 2. No evidence of a tendon or ligament tear. 3. Hyperintense fluid is seen in the soft tissues which in the heads of the 1st through 4th metatarsa l bones which may represent a intermetatarsal bursitis. No soft tissue mass is seen on this noncontr ast examination to suggest a neuroma. DATA REPOSITORY:
== END ==
PROVIDERS: PCP Family Medicine; Visit Provider Podiatrist
DX: G57.61 Lesion of plantar nerve, right lower limb (principal); M84.374A Stress fracture, right foot, initial encounter for fracture; M79.671 Pain in right foot
CPT/HCPCS: 73718

== ENCOUNTER → 2024-04-13 08:20 | Outpatient (BNVA) | payer MEDICARE, MEDICAID, SELFPAY | PROVIDERS: PCP Family Medicine; Referring Provider Family Medicine; Visit Provider Podiatrist | DX: M77.51 Other enthesopathy of right foot and ankle; M79.671 Pain in right foot; M84.374A Stress fracture, right foot, initial encounter for fracture; L84 Corns and callosities; L60.3 Nail dystrophy | CPT/HCPCS: 99214 ==

== ENCOUNTER 2024-05-18 09:25 | Outpatient (REF) | payer MEDICARE, MEDICAID, SELFPAY ==
[2024-05-18 15:00] LABS: HCT 41.5 % (36.0-46.0); HGB 13.3 g/dL (11.2-15.7); MCH 30.3 pg (27.0-33.0); MCV 95 fL (80-95); MPV 11.1 fL (8.0-11.0); Platelet Count 224 10^3/uL (130-400); RBC 4.39 10^6/uL (3.93-5.22); RDW 13.3 % (11.7-14.6); RDW-SD 46.8 fL; WBC 6.22 10^3/uL (4.4-10.8)
[2024-05-18 15:35] LABS: ALT 19 U/L (14-59); AST 11 U/L (15-37); Alkaline Phosphatase 101 U/L (46-116); BUN 19 mg/dL (7-18); Bilirubin, Total 0.77 mg/dL (0.2-1.0); CREATININE 0.9 mg/dL (0.55-1.02); Calcium 9.4 mg/dL (8.5-10.1); Calculated LDL 81 mg/dL (<100); Chloride 108 mmol/L (98-107); Cholesterol 155 mg/dL (<200); Estimated GFR 76.92 (mL/min/1.73m2); Glucose 107 mg/dL (74-106); HDL Cholesterol 46 mg/dL (40-60); Potassium 3.8 mmol/L (3.5-5.1); Sodium 146 mmol/L (136-145); Total Protein 6.9 g/dL (6.4-8.2); Triglyceride 142 mg/dL (<150)
== END 2024-05-18 09:26 | disposition home or self-care (01) ==
LOC: NCHCN 09:25
PROVIDERS: PCP Family Medicine; Visit Provider Family Medicine
DX: Z00.00 Encounter for general adult medical examination without abnormal findings (principal)
CPT/HCPCS: 80053; 80061; 82306; 85027

== ENCOUNTER → 2024-05-25 08:35 | Outpatient (BNVA) | payer MEDICARE, MEDICAID, SELFPAY | PROVIDERS: PCP Family Medicine; Referring Provider Family Medicine; Visit Provider Podiatrist | DX: M77.51 Other enthesopathy of right foot and ankle (principal); G57.60 Lesion of plantar nerve, unspecified lower limb; M79.671 Pain in right foot; L84 Corns and callosities; L60.3 Nail dystrophy | CPT/HCPCS: 20600; J0702; J1100 ==

== ENCOUNTER 2024-07-06 02:08 | Outpatient (CLI) | payer MEDICARE, MEDICAID, SELFPAY ==
--- NOTE | 2024-07-06 | DI.DEXA_ITS ---
Exam(s) XR DEXA BONE DENSITY W/WO MICHAEL EXAM: XR DEXA BONE DENSITY W/WO MICHAEL CLINICAL HISTORY: MENOPAUSAL STATE Z78.0 TECHNIQUE: Hologic Horizon C densitometer analysis of left hip, lumbar spine and right forearm. La teral survey image of the thoracic and lumbar spine. COMPARISON: CR LUMBAR SPINE COMPLETE from 08/20/2015 FINDINGS: Lateral view of the thoracic and lumbar spine shows no evidence of compression fractures. Bone mineral density measurements of the lumbar spine correspond to a total T-score of 0.1, in the n ormal range. Bone mineral density measurements of the left hip correspond to a total T-score of -0.8, in the norm al range.. The femoral neck T-score is -0.3, in the normal range.. Theright forearm bone mineral density measurements correspond to a T-score of the distal 3rd of 1.0, in the normal range.. IMPRESSION: Normal bone mineral density
--- NOTE | 2024-07-06 | DI.MAMMO_ITS ---
Exam(s) MAMMO SCREENING EXAM: MAMMO SCREENING CLINICAL HISTORY: SCREENING MAMMO Z12.31 TECHNIQUE: Mammograms were interpreted according to the usual protocol including computer analysis w ith CAD system, tomosynthesis and C-view imaging. COMPARISON: No exams were available for comparison. Baseline examination FINDINGS: The breasts are composed of scattered fibroglandular densities, Breast Density category B. No suspicious masses or suspicious microcalcifications are seen. No skin thickening or abnormal axillary lymph nodes are seen. IMPRESSION: BI-RADS Category 1, Negative mammogram Yearly screening mammography is recommended. Breast Density - Category B, scattered fibroglandular densities. A negative radiographic report should not delay biopsy if a dominant or clinically suspicious mass is present. Up to ten percent of cancers are not identified on mammography. A negative report may reinforce clinical impression. Adenosis and dense breasts may obscure an underlying neoplasm. False positive reports average 6 to 10%. Patient will receive a letter notifying them of these results.
== END 2024-07-06 02:28 ==
LOC: DI 02:08
PROVIDERS: PCP Family Medicine; Visit Provider Family Medicine
DX: Z78.0 Asymptomatic menopausal state (principal); Z12.31 Encounter for screening mammogram for malignant neoplasm of breast; Z13.820 Encounter for screening for osteoporosis
CPT/HCPCS: 77063; 77067; 77080

== ENCOUNTER → 2024-07-14 10:22 | Outpatient (BNVA) | payer MEDICARE, MEDICAID, SELFPAY | PROVIDERS: PCP Family Medicine; Referring Provider Family Medicine; Visit Provider Surgery ==

== ENCOUNTER → 2024-08-01 07:56 | Outpatient (BNVA) | payer MEDICARE, MEDICAID, SELFPAY | PROVIDERS: PCP Family Medicine; Referring Provider Family Medicine; Visit Provider Podiatrist | DX: M77.51 Other enthesopathy of right foot and ankle (principal); G57.61 Lesion of plantar nerve, right lower limb; M79.671 Pain in right foot; M84.374A Stress fracture, right foot, initial encounter for fracture; L84 Corns and callosities; L60.3 Nail dystrophy | CPT/HCPCS: 20600; 64455; J0702; J1100 ==

== ENCOUNTER → 2024-08-29 08:07 | Outpatient (BNVA) | payer MEDICARE, MEDICAID, SELFPAY | PROVIDERS: PCP Family Medicine; Referring Provider Family Medicine; Visit Provider Podiatrist | DX: M77.51 Other enthesopathy of right foot and ankle (principal); G57.60 Lesion of plantar nerve, unspecified lower limb; M79.671 Pain in right foot; M84.374D Stress fracture, right foot, subsequent encounter for fracture with routine healing; L84 Corns and callosities; L60.3 Nail dystrophy | CPT/HCPCS: 99213 ==

== ENCOUNTER 2025-03-12 12:52 | Outpatient (REF) | payer MEDICARE, MEDICAID, SELFPAY ==
[2025-03-12 21:52] LABS: ALT 18 U/L (14-59); AST 16 U/L (15-37); Albumin 3.9 g/dL (3.4-5.0); Alkaline Phosphatase 112 U/L (46-116); Bilirubin, Direct 0.2 mg/dL (0.0-0.2); Bilirubin, Total 0.7 mg/dL (0.2-1.0); TSH 1.66 uIU/mL (0.36-3.74); Total Protein 7.1 g/dL (6.4-8.2)
== END 2025-03-12 12:53 | disposition home or self-care (01) ==
LOC: NCHCN 12:52
PROVIDERS: PCP Family Medicine; Visit Provider Family Medicine
DX: I48.19 Other persistent atrial fibrillation (principal)
CPT/HCPCS: 80076; 84443

== ENCOUNTER 2025-06-04 09:18 | Outpatient (CLI) | payer MEDICARE, MEDICAID, SELFPAY ==
[2025-06-04 09:35] LABS: Abs Immature Grans 0.02 10^3/uL (0.0-0.06); HCT 40.4 % (36.0-46.0); HGB 13.4 g/dL (11.2-15.7); Immature Grans % 0.3 %; MCH 30.5 pg (27.0-33.0); MCHC 33.2 % (32.0-36.0); MCV 92 fL (80-95); MPV 10.1 fL (8.0-11.0); Platelet Count 260 10^3/uL (130-400); RBC 4.40 10^6/uL (3.93-5.22); RDW 13.2 % (11.7-14.6); RDW-SD 44.6 fL; WBC 6.52 10^3/uL (4.4-10.8)
[2025-06-04 10:20] LABS: ALT 17 U/L (14-59); AST 13 U/L (15-37); Albumin 3.7 g/dL (3.4-5.0); Alkaline Phosphatase 103 U/L (46-116); Anion Gap 7.5 mmol/L (3-11); BUN 20 mg/dL (7-18); Bilirubin, Total 0.7 mg/dL (0.2-1.0); CO2 30.5 mmol/L (21.0-32.0); Calcium 8.9 mg/dL (8.5-10.1); Chloride 105 mmol/L (98-107); Estimated GFR 67.36 (mL/min/1.73m2); Glucose 104 mg/dL (74-106); Potassium 3.5 mmol/L (3.5-5.1); Sodium 143 mmol/L (136-145); Total Protein 7.4 g/dL (6.4-8.2)
== END 2025-06-04 09:19 | disposition home or self-care (01) ==
LOC: LBO 09:19
PROVIDERS: PCP Family Medicine; Visit Provider Family Medicine
DX: I48.91 Unspecified atrial fibrillation (principal)
CPT/HCPCS: 36415; 80053; 85025

== ENCOUNTER 2025-06-04 16:14 | Outpatient (REF) | payer MEDICARE, MEDICAID, SELFPAY ==
[2025-06-04 16:16] LABS: COMMENT (LAB VIEW ONLY) 52.95 mg/dL; Microalb ug/mg Crea 15.3 ug/mg Cr
== END 2025-06-04 16:15 | disposition home or self-care (01) ==
LOC: NCHCN 16:14
PROVIDERS: PCP Family Medicine; Visit Provider Family Medicine
DX: I10 Essential (primary) hypertension (principal)
CPT/HCPCS: 82043; 82570

== ENCOUNTER 2025-06-20 15:36 | Outpatient (REF) | payer MEDICARE, MEDICAID, SELFPAY ==
[2025-06-20 14:39] LABS: Calculated LDL 101 mg/dL (<100); Cholesterol 188 mg/dL (<200); HDL Cholesterol 44 mg/dL (>or=50); Triglyceride 219 mg/dL (<150)
== END 2025-06-20 15:37 | disposition home or self-care (01) ==
LOC: NCHCN 15:36
PROVIDERS: PCP Family Medicine; Visit Provider Family Medicine
DX: E66.9 Obesity, unspecified (principal)
CPT/HCPCS: 80061